=== PATIENT | male | born 1995 | race Caucasian/White ===

== ENCOUNTER 2024-05-16 11:31 | Emergency (ER) | payer OTHER ==
[2024-05-16 12:11] VITALS: BP 116/80; PULSE 62; RESP 18; TEMP 97.2; BMI 23.1
[2024-05-16] MEDS ORDERED: KETOROLAC TROMETHAMINE 30 MG/1 ML VIAL ONE (12:12)
[2024-05-16] MEDS: KETOROLAC TROMETHAMINE 30 MG/1 ML VIAL IM ONE (12:20)
== END 2024-05-16 13:48 | disposition home or self-care (01) ==
LOC: JERFT 11:31
PROC: 3E0233Z Introduction of Anti-inflammatory into Muscle, Percutaneous Approach (ICD-10-PCS; principal; 2024-05-16)
DX: S82.55XA Nondisplaced fracture of medial malleolus of left tibia, initial encounter for closed fracture (principal); M25.572 Pain in left ankle and joints of left foot; W20.8XXA Other cause of strike by thrown, projected or falling object, initial encounter
CPT/HCPCS: 73610-TC-LT-FY; 99284-25